=== PATIENT | female | born 1950 | race Hispanic/Latino ===

== ENCOUNTER 2022-01-20 08:08 | Emergency (ER) | payer MEDICARE, OTHER ==
[~2022-01-20] VITALS: Ht 157.5 cm; Wt 73.9 kg
[2022-01-20] MEDS ORDERED: LISINOPRIL5 MG PO (09:18)
== END 2022-01-20 10:20 | disposition home or self-care (01) ==
LOC: FSED 08:21
DX: M25.562 Pain in left knee (principal); S80.02XA Contusion of left knee, initial encounter; W01.0XXA Fall on same level from slipping, tripping and stumbling without subsequent striking against object, initial encounter; Y93.01 Activity, walking, marching and hiking; Y92.89 Other specified places as the place of occurrence of the external cause; I10 Essential (primary) hypertension
CPT/HCPCS: 99283